=== PATIENT | male | born 1985 | race Caucasian/White ===

== ENCOUNTER 2021-10-08 15:39 | Emergency (ER) | payer OTHER ==
[2021-10-08 16:31] VITALS: BP 133/88
--- NOTE | 2021-10-08 17:27 | ED Physician Documentation ---
History of Present Illness - Stated complaint Stated Complaint: BACK INJ - Chief complaint Chief Complaint: Back Pain - History obtained from History obtained from: Patient - History of Present Illness Timing: Today Pain level max: 6 Pain level now: 5 - Additonal information Additional information: 36-year-old male presents to the emergency department low back pain. He states he was working at [employer] today when he lifted a bed frame and twisted. Since then has had low back pain. No loss of bowel or bladder control. No numbness or tingling. Worse with movement, better with rest. Review of Systems Constitutional: denies: Fever, Chills GI: denies: Vomiting, Diarrhea : denies: Dysuria, Frequency, Hesitancy, Incontinent Skin: denies: Rash Musculoskeletal: denies: Neck pain Neurologic: denies: Focal weakness, Numbness, Headache PD PAST MEDICAL HISTORY - Past Medical History Past Medical History: No Cardiovascular: None Respiratory: None Neuro: None Endocrine/Autoimmune: None GI: None : None HEENT: None Psych: None Musculoskeletal: None Derm: None - Past Surgical History Past Surgical History: Yes Ortho: ACL reconstruction - Present Medications Home Medications: Ambulatory Orders Medication Instructions Recorded Confirmed Meloxicam [Mobic] 15 mg PO DAILY PRN #20 tablet 10/08/21 methocarbamoL [Robaxin] 500 mg PO Q6H PRN #20 tablet 10/08/21 - Allergies Allergies/Adverse Reactions: Allergies Allergy/AdvReac Type Severity Reaction Status Date / Time Penicillins Allergy Unknown Verified 10/08/21 15:46 - Social History Does the pt smoke?: No Does the pt drink ETOH?: No Does the pt have substance abuse?: No PD ED PE NORMAL - Vitals Vital signs reviewed: Yes - General General: Alert and oriented X 3, No acute distress - HEENT HEENT: Moist mucous membranes, Pharynx benign - Neck Neck: Supple, no meningeal sign - Cardiac Cardiac: RRR, Strong equal pulses - Respiratory Respiratory: No respiratory distress, Clear bilaterally - Abdomen Abdomen: Soft, Non tender, Non distended - Back Back: No spinal TTP, Other (paraspinal spasm low lumbar.) - Derm Derm: Warm and dry - Extremities Extremities: No edema, No calf tenderness / cord - Neuro Neuro: Alert and oriented X 3, No motor deficit, No sensory deficit, Other (Normal bilateral lower extremity patellar and ankle jerk reflexes. Normal great toe extension bilaterally. no saddle anesthesia) - Psych Psych: Normal mood, Normal affect Results - Vitals Vitals: Vital Signs - 24 hr 10/08/21 10/08/21 15:42 16:27 Temperature 36.5 C Heart Rate 69 70 Respiratory 20 20 Rate Blood Pressure 138/98 H 133/88 H O2 Saturation 98 98 Oxygen O2 Source Room air PD MEDICAL DECISION MAKING - ED course Complexity details: considered differential (No cauda equina, no spinal epidural abscess, no fracture, no aortic dissection or evidence of aneursym rupture), d /w patient ED course: Patient with what likely a lumbar strain. No indication for imaging. No midline tenderness. No step-off or deformity. There is palpable spasm. Will place on muscle relaxants and pain medication for home. No evidence of cauda equina, epidural abscess. Patient counseled regarding signs and symptoms for which I believe and urgent re-evaluation would be necessary. Patient with good understanding of and agreement to plan and is comfortable going home at this time This document was made in part using voice recognition software. While efforts a re made to proofread this document, sound alike and grammatical errors may occur. Departure - Departure Disposition: 01 Home, Self Care Clinical Impression: Low back strain Qualifiers: Encounter type: initial encounter Qualified Code(s): S39.012A - Strain of muscle, fascia and tendon of lower back, initial encounter Condition: Good Instructions: ED Sprain Strain Lumbar Follow-Up: your,doctor in 1 week for repeat evaluation [Other] Prescriptions: Meloxicam [Mobic] 15 mg PO DAILY PRN #20 tablet PRN Reason: pain methocarbamoL [Robaxin] 500 mg PO Q6H PRN #20 tablet PRN Reason: muscle spasm Comments: Your prescriptions were sent to [facility] in [place]. Please follow-up with your doctor for further care. Return if you worsen. Do not drive or operate heavy machinery while taking the Robaxin. Forms: Activity restrictions Discharge Date/Time: 10/08/21 17:40
== END 2021-10-08 17:40 | disposition home or self-care (01) ==
LOC: ED 15:39
DX: S39.012A Strain of muscle, fascia and tendon of lower back, initial encounter (principal); X50.0XXA Overexertion from strenuous movement or load, initial encounter; Y93.89 Activity, other specified; Y99.0 Civilian activity done for income or pay
CPT/HCPCS: 99282; 99283

== ENCOUNTER 2022-07-27 00:35 | Emergency (ER) | payer BC ==
--- NOTE | 2022-07-27 00:56 | ED Physician Documentation ---
PD HPI HEENT - Stated complaint Stated Complaint: L NECK SWELLING - Chief complaint Chief Complaint: Heent - History obtained from History obtained from: Patient - Additional information Additional information: Patient is a 37-year-old male presenting for evaluation of left Sided neck swelling that has been present since Wednesday morning. He reports waking up with the swelling yesterday and noticing that it has been getting worse. This evening when he was laying back it made him feel like he was having trouble swallowing. He otherwise denies difficulty breathing or swallowing when he is sitting upright. He has noticed a mild amount of redness and it is tender. He denies dental pain or previous history of similar swelling. Denies fever. Denies URI symptoms. Review of Systems Constitutional: denies: Fever Nose: denies: Congestion Throat: denies: Sore throat Cardiac: denies: Chest pain / pressure Respiratory: denies: Dyspnea, Cough GI: denies: Abdominal Pain, Vomiting Musculoskeletal: reports: Neck pain Neurologic: denies: Headache PD PAST MEDICAL HISTORY - Past Medical History Cardiovascular: None Respiratory: None Neuro: None Endocrine/Autoimmune: None GI: None : None HEENT: None Psych: None Musculoskeletal: None Derm: None - Past Surgical History Past Surgical History: Yes Ortho: ACL reconstruction - Present Medications Home Medications: Ambulatory Orders Medication Instructions Recorded Confirmed No Known Home Medications 07/27/22 07/27/22 - Allergies Allergies/Adverse Reactions: Allergies Allergy/AdvReac Type Severity Reaction Status Date / Time Penicillins Allergy Unknown Verified 07/27/22 00:45 - Social History Does the pt smoke?: No Does the pt drink ETOH?: No Does the pt have substance abuse?: No PD ED PE NORMAL - General General: Alert and oriented X 3, No acute distress, Well developed/nourished - HEENT HEENT: Atraumatic, Dentition benign (Decayed teeth), Other (No oral swelling, Normal speech, uvula is midline, no tongue swelling,No swelling to floor of mouth; No drooling, no trismus) - Neck Neck: Supple, no meningeal sign, Other (Left submandibular swelling with slight overlying erythema, normal speech, no oral swelling) - Cardiac Cardiac: RRR, Strong equal pulses - Respiratory Respiratory: No respiratory distress, Clear bilaterally - Abdomen Abdomen: Non tender, Non distended - Derm Derm: Warm and dry - Neuro Neuro: Normal speech PD ED PE EXPANDED - HEENT HEENT Visual: 1 - swelling Results - Vitals Vitals: Vital Signs - 24 hr 07/27/22 07/27/22 07/27/22 00:42 02:37 03:33 Temperature 36.2 C L 36.6 C Heart Rate 73 61 58 L Respiratory 17 16 16 Rate Blood Pressure 137/89 H 134/89 H 138/105 H O2 Saturation 99 100 100 Oxygen O2 Source Room air - Labs Labs: Laboratory Tests 07/27/22 07/27/22 07/27/22 00:54 00:54 03:16 WBC 11.0 H RBC 4.58 L Hgb 13.7 L Hct 40.9 L MCV 89.3 MCH 29.9 MCHC 33.5 RDW 13.2 Plt Count 294 MPV 8.8 Neut # (Auto) 7.1 H Lymph # (Auto) 2.6 [place] # (Auto) 0.9 Eos # (Auto) 0.2 Baso # (Auto) 0.1 Absolute Nucleated RBC 0.00 Nucleated RBC % 0.0 Sodium 136 Potassium 3.9 Chloride 102 Carbon Dioxide 27 Anion Gap 7.0 BUN 16 Creatinine 1.0 Estimated GFR (MDRD) 84 L Glucose 150 H Calcium 8.7 SARS-CoV-2 (PCR) NOT DETECTED PD MEDICAL DECISION MAKING - ED course Complexity details: reviewed results, re-evaluated patient, d/w patient, d/w family ED course: Patient with left-sided neck swelling. No signs of airway compromise.Labs reviewed without significant findings. Vital signs are stable. CT scan with fluid collection and unclear whether this is a necrotic mass or lymph node versus abscess. Discussed with ENT at [facility] who agrees with our antibiotic choices and recommends transfer for further evaluation. 0210 - Patient reports feeling the same with no significant change in swelling or other symptoms. No trismus, speech remains normal, No airway compromise. Reviewed his CT results with swelling in the submandibular region concerning for necrotic lymph node versus abscess. Discussed plan for IV antibiotics and ENT consult at [facility]. 0302- D/W Dr. Berman (ENT, [facility]). He recommends admission at [facility] for 24 hours for IV antibiotics. He agrees with plan for Rocephin 2 g IV every 24 hours and metronidazole 500 IV every 8 hours. If there is clinical improvement then patient can be followed up closely in their outpatient clinic for drainage or biopsy. If there is any worsening Then patient can be transferred to [facility] for ENT consultation with drainage.I reviewed these recommendations with the patient and his significant other and they are in agreement with this plan. I will reach out to our telemetry hospitalist service. 0325 - Dr. Berman has called back and would Like us now to transfer the patient to [facility] ER where they will be able to evaluate him and admit him and monitor him more closely for any signs of worsening or airway compromise. I did ask whether we should give him any steroids and He does not recommend steroids at this time. I did discuss this with the patient who consents to transfer. Departure - Departure Disposition: 02 Transfer Acute Care Hosp Clinical Impression: Submandibular abscess Condition: Stable
[2022-07-27 01:00] LABS: BASOPHILS # (AUTO) 0.1 10^3/uL (0.0-0.1); BASOPHILS % (AUTO) 0.6 %; EOSINOPHILS # (AUTO) 0.2 10^3/uL (0.0-0.7); HCT - HEMATOCRIT 40.9 % (42.0-52.0); HGB - HEMOGLOBIN 13.7 g/dL (14.0-18.0); LYMPHOCYTES # (AUTO) 2.6 10^3/uL (1.5-3.5); LYMPHOCYTES % (AUTO) 23.9 %; MEAN CORPUSCULAR HEMOGLOBIN 29.9 pg (27.0-31.0); MEAN CORPUSCULAR HGB CONC 33.5 g/dL (32.0-36.0); MEAN CORPUSCULAR VOLUME 89.3 fL (80.0-94.0); MEAN PLATELET VOLUME 8.8 fL (7.4-11.4); MONOCYTES # (AUTO) 0.9 10^3/uL (0.0-1.0); MONOCYTES % (AUTO) 8.5 %; NEUTROPHILS # (AUTO) 7.1 10^3/uL (1.5-6.6); NEUTROPHILS % (AUTO) 64.1 %; PLT - PLATELET COUNT 294 10^3/uL (130-450); RED BLOOD COUNT 4.58 10^6/uL (4.70-6.10); RED CELL DISTRIBUTION WIDTH 13.2 % (12.0-15.0)
[2022-07-27 01:07] LABS: CALCIUM 8.7 mg/dL (8.5-10.3); POTASSIUM 3.9 mmol/L (3.5-5.0)
--- NOTE | 2022-07-27 02:09 | CT Report ---
PROCEDURE: SOFT TISSUE NECK W INDICATIONS: Left submandibular swelling CONTRAST: IV CONTRAST: Optiray 320 ml: 100 PO CONTRAST: *NO PO CONTRAST TECHNIQUE: After the administration of intravenous contrast, 3.0 mm axial sections acquired from the sella to th e aortic arch. Additional oblique axial 3.0 mm sections acquired through the pharynx. 3 mm thick co monet reformats were generated. For radiation dose reduction, the following was used: automated exp osure control, adjustment of mA and/or kV according to patient size. COMPARISON: None. FINDINGS: Image quality: Excellent. Lymph nodes: Anteriorly in the left submandibular region, there is a loculated thick walled fluid col lection or necrotic mass measuring approximately 2.2 x 1.8 x 1.8 cm with adjacent fat stranding. Ther e are asymmetrically prominent subcentimeter left cervical lymph nodes measuring up to 0.9 cm in shor t axis. Vessels: Visualized vasculature appears patent. Neck spaces: The oropharynx, nasopharynx, and pharynx demonstrate no mucosal lesions. The vocal cor ds, false vocal cords, pyriform sinuses, epiglottis, vallecula, and tongue base all appear normal. E xtramucosal spaces appear unremarkable. Glands: The left submandibular gland is asymmetrically mildly larger in size than the right. However, no associated fat stranding, fluid, or dilated ducts identified. No discrete sialoliths. The parotid and thyroid appear within normal limits. Miscellaneous: Visualized brain and orbits appear normal. Lung apices appear clear. Superficial so ft tissues appear normal. Bones: No suspicious bony lesions. Visualized sinuses and mastoids appear unremarkable. IMPRESSION: 1. Thick walled collection demonstrated in the left submandibular region anteriorly with mild associa jackson fat stranding. The findings are suggestive of a necrotic mass or lymph node versus a loculated fl uid collection suggestive of abscess. Correlation is recommended clinically and if indicated further evaluation may obtained with ultrasound. 2. Mild asymmetric enlargement of the left parotid gland relative to the right but no associated fat stranding, fluid collections, sialoliths, or dilated ducts are identified to definitely suggest sialo adenitis. Reviewed by: Arie Holder MD on 07/27/2022 2:08 AM PDT Approved by: Arie Holder MD on 07/27/2022 2:08 AM PDT Station ID: [id number]
[2022-07-27] MEDS ORDERED: metroNIDAZOLE 500 MG/100 ML 500 MG/100 ML BAG IV ONE (02:14)
[2022-07-27] MEDS ORDERED: cefTRIAXone 2 GM in SODIUM CHLORIDE 0.9% MINIBAG 100 ML IV STA (02:14)
[2022-07-27] MEDS ORDERED: cefTRIAXone 2 GM VIAL ONE (02:36)
[2022-07-27 03:34] VITALS: BP 138/105
== END 2022-07-27 04:21 | disposition short-term general hospital (02) ==
LOC: ED 00:35
DX: K12.2 Cellulitis and abscess of mouth (principal); Z20.822 Contact with and (suspected) exposure to COVID-19
CPT/HCPCS: 36415; 70491; 80048; 85025; 87635; 96365; 96368; 99284; 99285; Q9967